=== PATIENT | female | born 1970 | race Caucasian/White ===

== ENCOUNTER 2021-03-03 13:49 | Outpatient (REF) | payer MEDICAID, SELFPAY ==
--- NOTE | ~2021-03-03 | XR_ITS ---
EXAMINATION: XR CHEST CLINICAL INFORMATION: Shortness of breath COMPARISON: None TECHNIQUE: 2 views of the chest were obtained. FINDINGS: No significant abnormality is noted involving the heart, lungs, mediastinum, bony thorax or soft tissues. XR/XR chest 2V IMPRESSION: Unremarkable chest exam.
== END 2021-03-03 13:50 | disposition home or self-care (01) ==
LOC: HO.HMGCX 13:49
PROVIDERS: PCP Internal Medicine; Visit Provider Internal Medicine
DX: R06.02 Shortness of breath (principal)
CPT/HCPCS: 71046

== ENCOUNTER 2021-03-04 13:36 | Outpatient (REF) | payer MEDICAID, SELFPAY ==
[2021-03-04 16:28] LABS: Hematocrit 38.6 % (37-47); Hemoglobin 13.2 g/dl (12.0-16.0); Mean Corpuscular HGB Conc 34.2 g/dl (31.0-35.0); Mean Corpuscular Hemoglobin 30.6 pg (27.0-33.0); Mean Corpuscular Volume 89.4 fL (80-98); Mean Platelet Volume 10.2 fL (9.4-12.3); Platelet Count 292 X10*3/uL (160-400); Red Blood Count 4.32 X10*6/uL (4.20-5.50); Red Cell Distribution Width 12.8 % (11.0-16.0); White Blood Count 6.8 X10*3/uL (4.8-10.8)
[2021-03-04 16:38] LABS: D Dimer < 200 NG/ML
[2021-03-04 16:40] LABS: Alanine Aminotransferase 43 U/L (0-31); Albumin Level 4.4 g/dL (3.5-5.0); Alkaline Phosphatase 97 U/L (39-117); Anion Gap 16 (12-20); Aspartate Amino Transferase 28 U/L (5-31); Bilirubin Total 0.3 mg/dL (0.0-1.0); Blood Urea Nitrogen 15 mg/dL (9-16); Calcium 9.7 mg/dL (8.4-10.2); Carbon Dioxide 23 mmol/L (22-29); Chloride 105 mmol/L (96-108); Estimated Glomerular Filt Rate > 60; Glucose Fasting 89 mg/dL (60-99); Potassium 4.2 mmol/L (3.3-5.1); Sodium 140 mmol/L (135-145); Total Protein 8.3 g/dL (6.5-8.0)
[2021-03-04 16:58] LABS: B Type Natriuretic Peptide 27 pg/mL (<100)
== END 2021-03-04 13:37 | disposition home or self-care (01) ==
LOC: HO.HMGCLDS 13:36
PROVIDERS: PCP Internal Medicine; Visit Provider Internal Medicine
DX: I26.99 Other pulmonary embolism without acute cor pulmonale (principal); R06.02 Shortness of breath; U07.1 COVID-19
CPT/HCPCS: 36415; 80053; 83880; 85027; 85379

== ENCOUNTER → 2021-03-26 08:32 | Outpatient (REF) | payer MEDICAID, SELFPAY ==
--- NOTE | 2021-03-26 08:35 | CA_ITS ---
Transthoracic Echocardiogram Amended Patient (Last, First, Middle): Bailey Nicholson, Gender: Female Date of : 1970 Age: 51 Procedure Date: 03/26/2021 Procedure Type: Transthoracic Echocardiogram Location: OP Height: 162.56 cm Weight: 107.05 kg BSA: 2.10 m2 Heart Rate: bpm BP: 120 / 60 mmHg Veneer Sample Maker: MAIN/IVON Referring MD: Evelyn Douglas MD Symptoms: R06.02 - Shortness of breath Study Quality: Fair ECG Rhythm: Sinus Conclusions: - The left ventricular systolic function is normal. The calculated ejection fraction is 62% by biplane method. - The basal inferior segment is hypokinetic. - No obvious valvular pathology seen on this study. Findings Left Ventricle Normal left ventricular cavity size. There is normal left ventricular wall thickness. The left ventricular systolic function is normal. The calculated ejection fraction is 62% by biplane method. Diastolic function is normal for age. Wall Motion Rest Echo Findings The basal inferior segment is hypokinetic. Right Ventricle Normal right ventricular cavity size and systolic function. Atria Both atria are normal in size. Aortic Valve There is a normal trileaflet aortic valve. There is no aortic valve stenosis. There is no aortic valve regurgitation. Mitral Valve The mitral valve appears normal. There is no mitral valve regurgitation. There is no mitral valve stenosis. Pulmonic Valve The pulmonic valve was not well visualized. Tricuspid Valve Normal tricuspid valve structure. There is no tricuspid valve regurgitation. The pulmonary artery systolic pressure is normal. Great Vessels The aortic annulus, sinuses of valsalva, and asc aorta are normal in size. Venous The inferior vena cava is mildly dilated and collapses greater than 50% with inspiration. Pericardium/Pleural There is no evidence of pericardial effusion. Prior Study Comparison No prior study available for comparison. Recommendations, Care & Conclusions No obvious valvular pathology seen on this study. Measurements 2D Linear Measurements IVSd: 0.79 0.6-0.9/0.6-1.0 cm LVIDd: 4.37 3.9-5.3/4.2-5.9 cm LVIDd Index: 2.08 2.4-3.2/2.2-3.1 cm/m2 LVIDs: 2.79 2.0-3.6 cm LVPWd: 0.84 0.7-1.1 cm Ao Root: 3.00 2.1-3.5 cm LA Diam: 3.40 2.7-3.8/3.0-4.0 cm LAIDs Index: 1.62 1.5-2.3 cm/m2 LV Mass: 137.40 67-162/88-224 g LV Mass Index: 65.43 43-95/49-115 g/m2 LVOT Diam: 2.10 3.0+(-)1.3 cm 2D Volumes LA Vol: 19.40 2D Systolic Function EF 4C: 62.70 >55% EF 2C: 65.00 >55% EF BiP: 62.00 >55% Mitral Valve MV Pk E: 0.73 MV PK A: 0.81 MV Decel Time: 186.00 E/A: 0.90 E'Lateral: 11.10 E'Medial: 7.83 E/E' Med: 9.30 E/E' Lat: 6.60 PHT: 54.00 MVA PHT: 4.07 Decel Berrien: 3.92 Aortic Valve AoV Pk Francisco: 1.31 AoV Mn Francisco: 0.94 AoV VTI: 0.30 AoV Pk Grad: 7.00 Aov Mn Grad: 4.00 KARLEE Cont.VTI: 2.54 LVOT LVOT Pk Francisco: 1.04 LVOT Mn Francisco: 0.66 LVOT VTI: 0.22 LVOT Pk Grad: 4.00 LVOT Mn Grad: 2.00 LVOT Diam: 2.10 LVOT Area: 3.46 Diastolic Function MV Pk E: 0.73 MV Pk A: 0.81 E/A: 0.90 E'Medial: 7.83 E/E' Med: 9.30 E' Laterial: 11.10 E/E' Lat: 6.60 Right Ventricle TAPSE (mm): 22.60 TVS' Francisco: 10.20 Tricuspid Valve TR Pk Francisco: 2.02 TR Pk Grad: 16.00 RA Press: 8.00 RVSP: 24.00 Great Vessels Aorta Ao Root-2D: 3.00 2.0-3.7 cm Ao Asc: 3.00 2.1-3.4 cm Ao Arch: 2.70 Updated in Other Vendor System with Status of Final J Carlos Cotter MD electronically signed on 03/28/2021 1:25:17 PM with status of Final
== END ==
LOC: HO.CARD 08:32
PROVIDERS: Visit Provider Internal Medicine
DX: R06.02 Shortness of breath (principal); I26.99 Other pulmonary embolism without acute cor pulmonale; U07.1 COVID-19
CPT/HCPCS: 93306

== ENCOUNTER 2022-02-08 15:49 | Outpatient (REF) | payer MEDICAID, SELFPAY ==
--- NOTE | 2022-02-08 17:21 | PFT_ITS ---
FLOWS: FEV1 89% of predicted at 2.52 L. FVC 81% of predicted at 2.88 L. FEV1 to FVC ratio of 0.87. No bronchodilator response. LUNG VOLUMES: Total lung capacity 79% of predicted at 4.03 L. Residual volume 61% of predicted at 1.09 L. Slow vital capacity 90% of predicted at 2.95 L. Expiratory reserve volume 7% of predicted at 0.08 L. Diffusion capacity is mildly decreased, diffusion capacity corrects to normal after adjustment for alveolar ventilation. IMPRESSION: Mild restrictive ventilatory defect with no bronchodilator response. Decreased expiratory reserve volume suggests extrathoracic restriction likely secondary to abdominal obesity. Sotero Ordonez MD AP/MODL / [id number]
== END 2022-02-08 15:50 | disposition home or self-care (01) ==
LOC: HO.RESP 15:49
PROVIDERS: PCP Internal Medicine; Visit Provider Internal Medicine
DX: R06.09 Other forms of dyspnea (principal)
CPT/HCPCS: 94060; 94727; 94729

== ENCOUNTER → 2022-04-30 13:11 | Outpatient (REF) | payer MEDICAID, SELFPAY | LOC: HO.CARD 13:11 | PROVIDERS: PCP Internal Medicine; Visit Provider Internal Medicine | DX: R00.0 Tachycardia, unspecified (principal); R06.09 Other forms of dyspnea | CPT/HCPCS: 93225 ==

== ENCOUNTER 2024-03-26 09:12 | Outpatient (AMB) | payer BC, SELFPAY ==
[2024-03-26 09:20] VITALS: BP 116/70; PULSE 70; O2SAT 98; BMI 41.6
--- NOTE | 2024-03-26 09:20 | MHC.PC.OV ---
Vital Signs 03/26/24 09:20 Height 5 ft 3 in Weight 235 lb BMI 41.6 BP 116/70 Blood Pressure Location Lt radial Position Sitting Pulse 70 Pulse Source Pulse Oximeter Pulse Oximetry (%) 98 Oxygen Delivery Method Room Air Intake Visit Reasons: PE Intake Note: Cindy is here today for PE. Allergies cephalexin Allergy (Unknown, Verified 03/26/24 09:25) Anaphylaxis mild guaifenesin Allergy (Unknown, Verified 03/26/24 09:25) Anaphylaxis mild penicillin G Allergy (Unknown, Verified 03/26/24 09:25) Anaphylaxis mild penicillin V Allergy (Unknown, Verified 03/26/24 09:25) hives Penicillins [PENICILLINS] Allergy (Unknown, Unverified 03/26/24 09:25) CAN'T BREATH Shellfish Allergy (Unknown, Uncoded 03/26/24 09:25) SOB, hives Wasp sting Allergy (Unknown, Uncoded 03/26/24 09:25) swelling Medication List - Last Reconciled 03/26/24 by Evelyn Douglas MD albuterol sulfate 90 mcg/actuation 2 puffs inhalation Q6H PRN ascorbate calcium (vitamin C) 500 mg PO DAILY cholecalciferol (vitamin D3) PO epinephrine (EpiPen 2-Sandeep) 0.3 mg (0.3 mL) IM Q4H PRN zinc acetate PO Tobacco use date assessed: 03/26/24 Dental Screening Dental Screen Date: 03/26/24 Did you have a dental visit in the last 12 months?: Yes Did you have a dental problem in the last 6 months where you did not have access to dental care?: No Was dental information given to patient?: Patient has dentist HPI PE HPI Details Pt presents for PE. Pt c/o [facility] for a few years, patient has not been physically active. She denies PND orthopnea cough pleurisy. She complains of chronic bilateral heel pain worse at the end of day, after being on her feet all day for months. 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 She has been trying to lose weight decreasing caloric intake increasing physical activity for over 6 months unsuccessfully. She is interested in trying GLP 1 receptor agonist. [facility] Medical History (Updated 03/26/24 @ 11:07 by Evelyn Douglas MD) Pulmonary embolism COVID-19 SOB (shortness of breath) Surgical History (Updated 03/26/24 @ 09:31 by AURELIA Nunn) History of loop electrical excision procedure (LEEP) [place] teeth extracted Hx of cholecystectomy Family History (Updated 03/26/24 @ 09:32 by AURELIA Nunn) Father Hypertension Mother Hypertension Stroke Social History Housing: House Patient Tobacco Use Status: Never used Tobacco e-Cigarette/Vaping Use: Never Used Current occupational status: unemployed Cognitive needs: No Hearing needs: No Vision needs: Yes Questionnaire PHQ-9 Over the last 2 weeks, how often have you been bothered by any of the following problems? 1. Little interest or pleasure in doing things: several days 2. Feeling down, depressed, or hopeless: several days 3. Trouble falling or staying asleep, or sleeping too much: not at all 4. Feeling tired or having little energy: nearly every day 5. Poor appetite or overeating: not at all 6. Feeling bad about yourself - or that you are a failure or have let yourself or your family down: not at all 7. Trouble concentrating on things, such as reading the newspaper or watching television: not at all 8. Moving or speaking so slowly that other people could have noticed. Or the opposite - being so fidgety or restless that you have been moving around a lot more than usual: not at all 9. Thoughts that you would be better off or of hurting yourself in some way: not at all Total score: 5 Depression Screening Interpretation: Negative Depression Screening Done: Yes 00856 - PHQ-9 Billing: Yes Source: Developed by Drs. Joo Trevino, Debby Persaud, Hugo Maier and colleagues, with an educational marissa from [employer]. Thrive Questionnaire Date Thrive assessed: 03/26/24 I am a: Patient What is your living situation today?: I have a steady place to live Within the past 12 months, did the food you bought not last and you didn't have the money to get more?: Never true Within the past 12 months, did you worry whether your food would run out before you got money to buy more?: Never true Do you have trouble paying for medicines?: No Do you have trouble getting transportation to medical appointments?: No Do you have trouble paying your heating and electricity bill?: No Do you have trouble taking care of your child, family member or friend?: No Do you have trouble with day-to-day activities such as bathing, preparing meals, shopping, managing finances, etc.?: No Are you currently unemployed and looking for a job?: No Are you interested in more education?: Yes Please select the resources that you would like help with: None Currently or been in a relationship where the following occur: No concerns reported THRIVE Score: 0 AUDIT C Alcohol Use Questionnaire (AUDIT-C) 1. How often do you have a drink containing alcohol?: Monthly or less 2. How many drinks containing alcohol do you have on a typical day when you are drinking?: 1 or 2 3. How often do you have six or more drinks on one occasion?: Never Total Score: 1 ALVARO-7 AMB Questionnaire ALVARO-7 Date ALVARO - 7 assessed: 03/26/24 Feeling nervous, anxious, or on edge: 1 = Several days Not being able to stop or control worryin = Not at all Worrying too much about different things: 1 = Several days Trouble relaxin = More than half the days Being so restless that it is hard to sit still: 0 = Not at all Becoming easily annoyed or irritable: 1 = Several days Feeling afraid as if something awful might happen: 0 = Not at all Total ALVARO-7 score (0-4 normal; 5-9 mild; 10-14 moderate; 15-21 severe): 5 Source: Developed by Drs. Joo Trevino, Debby Persaud, Hugo Maier and colleagues, with an educational marissa from [employer]. ALVARO-7 Assessment Billing ALVARO-7 Assessment Tool: ALVARO-7 Assessment 64637 Review of Systems Const All systems reviewed & are unremarkable except as noted in HPI and below Eyes Reports no additional complaints ENT Reports no additional complaints Card Reports no additional complaints Resp Reports no additional complaints GI Reports no additional complaints Reports no additional complaints Physical exam (Primary Care) Vital Signs: Last Vital Signs Pulse 70 03/26/24 09:20 BP 116/70 03/26/24 09:20 Pulse Ox 98 03/26/24 09:20 Oxygen Delivery Method Room Air 03/26/24 09:20 BMI result Body Mass Index 41.6 Tobacco/Smoking Status: Tobacco use Status Tobacco use date assessed 03/26/24 03/26/24 09:34 Patient Tobacco Use Status Never used Tobacco 03/26/24 09:22 e-Cigarette/Vaping Use Never Used 03/26/24 09:22 PHQ-9: PHQ-9 Score PHQ-9: Total score 5 03/26/24 09:46 Depression Screening Interpretation: Negative Thrive Assessment: Date of Thrive Assessment Date Thrive assessed 03/26/24 03/26/24 09:22 Currently or been in a relationship where the following occur: No concerns reported Const General: no acute distress HENMT Head: Yes normal to inspection Ears: hearing grossly normal bilaterally General nose exam: Normal external nose present Face and sinus: Yes normal facial exam Throat: Yes posterior oropharynx normal Eyes General: appearance normal, both eyes and all related structures Neck Neck: Yes no lymphadenopathy and Yes supple Resp Effort & Inspection: normal respiratory effort Auscultation: clear to auscultation bilaterally Cardio Rhythm: regular rhythm Heart sounds: S1 normal heart sound present and S2 normal heart sound present GI Inspection: Yes normal to inspection Palpation (GI): Soft to palpation Percussion: Yes normal to percussion Auscultation: normal bowel sounds External Female Exam: normal external appearance Speculum Exam - Vagina: normal appearance of the vagina Speculum Exam - Cervix: normal appearance of the cervix Bimanual exam- vagina & uterus: normal bimanual exam Extrem General: Yes no clubbing, cyanosis or edema Coding Level of Care Code Est Pt Prev Care 40-64y(56875) Diagnoses Annual physical exam Z00.00 Overweight E66.3 Sleep apnea G47.30 Additional Codes ALVARO-7 Assessment Billing - ALVARO-7 Assessment Tool: ALVARO-7 Assessment 68842 ([id number]) PHQ-9 - 01122 - PHQ-9 Billing: Yes ([id number]) Assessment & Plan Assessment & Plan (1) Annual physical exam: Code(s): Z00.00 - Encounter for general adult medical examination without abnormal findings Category: Medical Plan: well balanced diet, regular exercise, schedule mammogram and colonoscopy, pap done today. (2) Overweight: Comment: BMI 41,6 Code(s): E66.3 - Overweight Category: Medical Plan: DECREASING CALORIC INTAKE INCREASING PHYSICAL ACTIVITY WEIGHT LOSS DISCUSSED WITH THE PATIENT. ZEPBOUND iS PRESCRIBED TO FACILITATE WEIGHT LOSS AND LOWER THE RISK FOR CORONARY ARTERY DISEASE, [place], CVA (3) Sleep apnea: Code(s): G47.30 - Sleep apnea, unspecified Category: Medical Plan: Obtain home sleep study to evaluate for sleep apnea Orders: Orders MM screening mammo BI Today R73.9 - Hyperglycemia, unspecified, Z12.31 - Encounter for screening mammogram for malignant neoplasm of breast Pap Smear Today Z00.00 - Encounter for general adult medical examination without abnormal findings Comprehensive [place]. Panel Fast Today Z00.00 - Encounter for general adult medical examination without abnormal findings Complete Blood Count Auto Diff Today Z00.00 - Encounter for general adult medical examination without abnormal findings Lipid Panel Today Z00.00 - Encounter for general adult medical examination without abnormal findings TSH reflex Free T4 Today Z00.00 - Encounter for general adult medical examination without abnormal findings UA w Microscopic Today Z00.00 - Encounter for general adult medical examination without abnormal findings RT home sleep study Today G47.30 - Sleep apnea, unspecified Hemoglobin A1c Today R73.9 - Hyperglycemia, unspecified Referrals Gastroenterology Referral Z00.00 - Encounter for general adult medical examination without abnormal findings Medications: New tirzepatide (weight loss) (Zepbound) for 4 weeks 2.5 mg (0.5 mL) subcut QWEEK 2 mL 0RF
== END 2024-03-26 11:09 | disposition home or self-care (01) ==
PROVIDERS: PCP Internal Medicine; Visit Provider Internal Medicine
DX: Z00.00 Encounter for general adult medical examination without abnormal findings (principal); E66.3 Overweight; G47.30 Sleep apnea, unspecified

== ENCOUNTER 2024-03-26 09:12 | Outpatient (REF) | payer BC, SELFPAY ==
[2024-03-26 13:05] LABS: Appearance Urine Turbid; Color Urine Yellow; Glucose Urine UA Negative (Negative); Leukocyte Esterase Urine Trace (Negative); Nitrite Urine Negative (Negative); Specific Gravity - Urine 1.025 (1.005-1.025); UMIC TRIGGER UA YES; Urine Blood Negative (Negative); Urine Ketones Negative (Negative); Urine Protein 30 (1+) mg/dL (Neg-Trace)
[2024-03-26 13:13] LABS: Bacteria Urine None Seen (None Seen); RBC Urine 0-2 /HPF (0-2); WBC Urine 0-5 /HPF (0-5)
[2024-03-26 13:14] LABS: MANUAL DIFF FLAG NO
[2024-03-26 13:25] LABS: Basophils Percent Auto 0.3 % (0-2); Eosinophils Absolute Auto 0.1 X10*3/uL (0.0-0.4); Eosinophils Percent Auto 1.1 % (0-4); Hematocrit 42.2 % (37.0-47.0); Hemoglobin 14.5 g/dl (12.0-16.0); Imm Gran Abs Auto 0.02 X10*3/uL (0.00-0.03); Imm Gran Pct Auto 0.3 % (0.0-0.4); Lymphocytes Absolute Auto 1.3 X10*3/uL (1.2-4.9); Lymphocytes Percent Auto 19.9 % (20-40); Mean Corpuscular HGB Conc 34.4 g/dl (31.0-35.0); Mean Corpuscular Hemoglobin 30.5 pg (27.0-33.0); Mean Corpuscular Volume 88.7 fL (80.0-98.0); Mean Platelet Volume 10.1 fL (9.4-12.3); Monocytes Absolute Auto 0.5 X10*3/uL (0.1-1.2); Monocytes Percent Auto 7.2 % (2-11); Neutrophils Absolute Auto 4.6 x10*3/uL (2.0-8.3); Neutrophils Percent Auto 71.2 % (45-73); Platelet Count 346 X10*3/uL (160-400); Red Blood Count 4.76 X10*6/uL (4.20-5.50); Red Cell Distribution Width 12.4 % (11.0-16.0); White Blood Count 6.4 X10*3/uL (4.8-10.8)
[2024-03-26 13:34] LABS: Estimated Average Glucose 97 mg/dL; Hemoglobin A1C 122.0468 umol/L; Total Hemoglobin (HGBA1C) 3859.0784 umol/L
[2024-03-26 13:51] LABS: Alanine Aminotransferase 37 U/L (0-31); Albumin Level 4.4 g/dL (3.5-5.0); Alkaline Phosphatase 73 U/L (39-117); Anion Gap 11 (12-20); Aspartate Amino Transferase 30 U/L (5-31); Bilirubin Total 0.5 mg/dL (0.0-1.0); Blood Urea Nitrogen 23 mg/dL (9-16); Calcium 9.5 mg/dL (8.4-10.2); Carbon Dioxide 23 mmol/L (22-29); Chloride 109 mmol/L (96-108); Cholesterol 168 mg/dL (<200); Estimated Glomerular Filt Rate > 60; Glucose Fasting 94 mg/dL (60-99); HDL Cholesterol 50 mg/dL (>40); LDL Cholesterol Calculated 102 mg/dL (<100); Sodium 139 mmol/L (135-145); Total Protein 8.7 g/dL (6.5-8.0); Triglycerides 84 mg/dL (<150)
[2024-03-26 14:08] LABS: TSH reflex Free T4 1.57 uIU/mL (0.32-4.0)
== END 2024-03-26 09:13 | disposition home or self-care (01) ==
LOC: HO.HMGCLDS 09:12
PROVIDERS: PCP Internal Medicine; Visit Provider Internal Medicine
DX: Z00.00 Encounter for general adult medical examination without abnormal findings (principal); R73.9 Hyperglycemia, unspecified; E66.3 Overweight; G47.30 Sleep apnea, unspecified
CPT/HCPCS: 36415; 80053; 80061; 81001; 83036; 84443; 85025; 96127

== ENCOUNTER 2024-03-26 11:02 | Outpatient (REF) | payer BC, SELFPAY ==
[2024-03-26 14:06] LABS: HPV 16,18/45 See PAP report
== END 2024-03-26 11:03 | disposition home or self-care (01) ==
LOC: HO.LNP 11:02
PROVIDERS: Visit Provider Internal Medicine
DX: Z00.00 Encounter for general adult medical examination without abnormal findings (principal)
CPT/HCPCS: 87624; 88175

== ENCOUNTER 2024-04-14 13:59 | Outpatient (REF) | payer BC, SELFPAY ==
[2024-04-14 15:41] LABS: B Type Natriuretic Peptide 15 pg/mL (<100)
[2024-04-14 16:24] LABS: Erythrocyte Sedimentation Rate 19 MM/HR (0-20)
[2024-04-17 08:47] LABS: PES - Abn Protein Band 1 1.3 g/dL (NONE DETECTED); Prot Elec - Albumin 4.7 g/dL (3.8-4.8); Prot Elec - Alpha1 0.3 g/dL (0.2-0.3); Prot Elec - Alpha2 0.8 g/dL (0.5-0.9); Prot Elec - Beta 1 0.4 g/dL (0.4-0.6); Prot Elec - Beta 2 0.4 g/dL (0.2-0.5); Prot Elec - Total Protein 8.7 g/dL (6.1-8.1)
== END 2024-04-14 14:00 | disposition home or self-care (01) ==
LOC: HO.HMGCLDS 13:59
PROVIDERS: PCP Internal Medicine; Visit Provider Internal Medicine
DX: R80.9 Proteinuria, unspecified (principal); R06.09 Other forms of dyspnea
CPT/HCPCS: 36415; 83880; 84165; 85652

== ENCOUNTER 2024-05-07 11:57 | Outpatient (REF) | payer BC, SELFPAY ==
[2024-05-07 14:04] LABS: Total Volume 24 Hour Urine 1400 mL
[2024-05-07 14:29] LABS: Creatinine, 24Hr Urine 1.1 G/Day (1.0-2.0); Creatinine, mg/dL 77.12; Protein 24 Hr Urine < 98 mg/Day (<150); Protein mg/dL < 7 mg/dL
[2024-05-10 14:28] LABS: IgA 136 mg/dL (47-310); IgG 2245 mg/dL (600-1640); IgM 56 mg/dL (50-300)
[2024-05-11 06:48] LABS: PEU-Protein Creat Ratio Rand 0.071 (0.024-0.184); PEU-Rand. Prot/Creat Ratio 71 mg/g creat (24-184); PEU-Random Ur. Gamma Globulin 0 %; PEU-Random Urine A1 Globulin 0 %; PEU-Random Urine A2 Globulin 0 %; PEU-Random Urine Albumin 100 %; PEU-Random Urine Beta Globulin 0 %; PEU-Random Urine Creatinine 113 mg/dL (20-275); PEU-Random Urine Protein 8 mg/dL (5-24)
== END 2024-05-07 11:58 | disposition home or self-care (01) ==
LOC: HO.HMGCLDS 11:57
PROVIDERS: PCP Internal Medicine; Visit Provider Internal Medicine
DX: R80.9 Proteinuria, unspecified (principal)
CPT/HCPCS: 82570; 82784; 84156; 84166; 86334

== ENCOUNTER → 2024-06-06 13:12 | Outpatient (BNV) | payer BC, SELFPAY | PROVIDERS: PCP Internal Medicine; Visit Provider Internal Medicine Medical Oncology | DX: D47.2 Monoclonal gammopathy (principal) | CPT/HCPCS: 99204 ==

== ENCOUNTER 2024-06-14 13:28 | Outpatient (AMB) | payer BC, SELFPAY ==
[2024-06-14 13:40] VITALS: BP 118/76; PULSE 73; RESP 18; TEMP 37.1; O2SAT 98; BMI 40.0
--- NOTE | 2024-06-14 13:40 | MHC.PC.OV ---
Vital Signs 06/14/24 13:40 Height 5 ft 3 in Weight 226 lb BMI 40.0 BP 118/76 Blood Pressure Location Lt brachial Position Sitting Respiration 18 Pulse 73 Pulse Source Pulse Oximeter Temp 98.8 F Temp Source Oral Pulse Oximetry (%) 98 Oxygen Delivery Method Room Air Intake Visit Reasons: Follow up on weight med Intake Note: Pt is here today for a follow up visit on weight. Allergies cephalexin Allergy (Unknown, Verified 06/14/24 13:44) Anaphylaxis mild guaifenesin Allergy (Unknown, Verified 06/14/24 13:44) Anaphylaxis mild penicillin G Allergy (Unknown, Verified 06/14/24 13:44) Anaphylaxis mild penicillin V Allergy (Unknown, Verified 06/14/24 13:44) hives Penicillins [PENICILLINS] Allergy (Unknown, Unverified 06/14/24 13:44) CAN'T BREATH Shellfish Allergy (Unknown, Uncoded 06/14/24 13:44) SOB, hives Wasp sting Allergy (Unknown, Uncoded 06/14/24 13:44) swelling Medication List - Last Reconciled 06/14/24 by Evelyn Douglas MD albuterol sulfate 90 mcg/actuation 2 puffs inhalation Q6H PRN ascorbate calcium (vitamin C) 500 mg PO DAILY cholecalciferol (vitamin D3) 500 mg PO DAILY epinephrine (EpiPen 2-Sandeep) 0.3 mg (0.3 mL) IM Q4H PRN Zepbound (tirzepatide (weight loss)) 2.5 mg (0.5 mL) subcut QWEEK NS zinc acetate 13 mg PO DAILY Tobacco use date assessed: 06/14/24 Dental Screening Dental Screen Date: 06/14/24 Did you have a dental visit in the last 12 months?: No Did you have a dental problem in the last 6 months where you did not have access to dental care?: Yes Was dental information given to patient?: Yes HPI Follow up on weight med HPI Details Patient presents for the follow-up. She has been taking Zepbound for 3 months lost 10 lb. She has been tolerating medication well, decreasing caloric intake and increasing physical activity. PFSH Medical History (Updated 06/14/24 @ 15:17 by Evelyn Douglas MD) COVID-19 SOB (shortness of breath) Surgical History (Updated 06/06/24 @ 17:45 by Miguel Swanson MD) History of loop electrical excision procedure (LEEP) [place] teeth extracted Hx of cholecystectomy Family History Father Hypertension Mother Hypertension Stroke Maternal Aunt Cancer Paternal Uncle Bone cancer Social History Household Members: Significant Other and Children Housing: House Patient Tobacco Use Status: Never used Tobacco e-Cigarette/Vaping Use: Never Used service: No Current occupational status: employed and unemployed Gender identity: Female Cognitive needs: No Hearing needs: No Vision needs: Yes Questionnaire PHQ-9 Over the last 2 weeks, how often have you been bothered by any of the following problems? 1. Little interest or pleasure in doing things: not at all 2. Feeling down, depressed, or hopeless: not at all 3. Trouble falling or staying asleep, or sleeping too much: several days 4. Feeling tired or having little energy: more than half the days 5. Poor appetite or overeating: not at all 6. Feeling bad about yourself - or that you are a failure or have let yourself or your family down: not at all 7. Trouble concentrating on things, such as reading the newspaper or watching television: not at all 8. Moving or speaking so slowly that other people could have noticed. Or the opposite - being so fidgety or restless that you have been moving around a lot more than usual: not at all 9. Thoughts that you would be better off or of hurting yourself in some way: not at all Total score: 3 Depression Screening Interpretation: Negative Depression Screening Done: Yes 94070 - PHQ-9 Billing: Yes Source: Developed by Drs. Joo Trevino, Debby Persaud, Hugo Maier and colleagues, with an educational marissa from [employer]. Thrive Questionnaire Date Thrive assessed: 06/14/24 I am a: Patient What is your living situation today?: I have a steady place to live Within the past 12 months, did the food you bought not last and you didn't have the money to get more?: Never true Within the past 12 months, did you worry whether your food would run out before you got money to buy more?: Never true Do you have trouble paying for medicines?: No Do you have trouble getting transportation to medical appointments?: No Do you have trouble paying your heating and electricity bill?: No Do you have trouble taking care of your child, family member or friend?: No Do you have trouble with day-to-day activities such as bathing, preparing meals, shopping, managing finances, etc.?: No Are you currently unemployed and looking for a job?: No Are you interested in more education?: No Please select the resources that you would like help with: None Currently or been in a relationship where the following occur: No concerns reported THRIVE Score: 0 AUDIT C Alcohol Use Questionnaire (AUDIT-C) 1. How often do you have a drink containing alcohol?: Monthly or less 2. How many drinks containing alcohol do you have on a typical day when you are drinking?: 1 or 2 3. How often do you have six or more drinks on one occasion?: Never Total Score: 1 ALVARO-7 AMB Questionnaire ALVARO-7 Date ALVARO - 7 assessed: 06/14/24 Feeling nervous, anxious, or on edge: 1 = Several days Not being able to stop or control worryin = Not at all Worrying too much about different things: 3 = Nearly every day Trouble relaxin = More than half the days Being so restless that it is hard to sit still: 0 = Not at all Becoming easily annoyed or irritable: 2 = More than half the days Feeling afraid as if something awful might happen: 0 = Not at all Total ALVARO-7 score (0-4 normal; 5-9 mild; 10-14 moderate; 15-21 severe): 8 Source: Developed by Drs. Joo Trevino, Debby Persaud, Hugo Maier and colleagues, with an educational marissa from [employer]. ALVARO-7 Assessment Billing ALVARO-7 Assessment Tool: ALVARO-7 Assessment 26246 Review of Systems Const All systems reviewed & are unremarkable except as noted in HPI and below ENT Reports no additional complaints Card Reports no additional complaints Resp Reports no additional complaints GI Reports no additional complaints Reports no additional complaints Physical exam (Primary Care) Vital Signs: Last Vital Signs Temp 98.8 F 06/14/24 13:40 Pulse 73 06/14/24 13:40 Resp 18 06/14/24 13:40 BP 118/76 06/14/24 13:40 Pulse Ox 98 06/14/24 13:40 Oxygen Delivery Method Room Air 06/14/24 13:40 BMI result Body Mass Index 40.0 Tobacco/Smoking Status: Tobacco use Status Tobacco use date assessed 06/14/24 06/14/24 13:49 Patient Tobacco Use Status Never used Tobacco 06/14/24 13:49 e-Cigarette/Vaping Use Never Used 06/14/24 13:49 PHQ-9: PHQ-9 Score PHQ-9: Total score 3 06/14/24 13:49 Depression Screening Interpretation: Negative Thrive Assessment: Date of Thrive Assessment Date Thrive assessed 06/14/24 06/14/24 13:49 Currently or been in a relationship where the following occur: No concerns reported Const General: no acute distress Eyes General: appearance normal, both eyes and all related structures Neck Neck: Yes no lymphadenopathy and Yes supple Resp Effort & Inspection: normal respiratory effort Auscultation: clear to auscultation bilaterally Cardio Rhythm: regular rhythm Heart sounds: S1 normal heart sound present and S2 normal heart sound present Coding Level of Care Code Est Pt Level 3 (66317) Diagnoses MGUS (monoclonal gammopathy of unknown significance) D47.2 Overweight E66.3 Additional Codes ALVARO-7 Assessment Billing - ALVARO-7 Assessment Tool: ALVARO-7 Assessment 61677 ([id number]) PHQ-9 - 24014 - PHQ-9 Billing: Yes ([id number]) Assessment & Plan Assessment & Plan (1) MGUS (monoclonal gammopathy of unknown significance): Comment: f/u Dr. Swanson Code(s): D47.2 - Monoclonal gammopathy Category: Medical Plan: Follow-up with Hematology (2) Overweight: Comment: BMI 41,6 Code(s): E66.3 - Overweight Category: Medical Plan: Continue decreasing caloric intake increasing physical activity discussed with the patient. Will increase Zepbound to 5 mg weekly and follow-up in 3 months Medications: New Zepbound (tirzepatide (weight loss)) z 5 mg (0.5 mL) subcut QWEEK 2 mL 2RF NS Discontinued Zepbound (tirzepatide (weight loss)) Discontinued Reason: Doctor's Order 2.5 mg (0.5 mL) subcut QWEEK 2 mL 1RF NS
--- OUTSIDE RECORDS SUMMARY | 2024-06-14 17:21 | XMS_ITS | Clinical Summary ---
Author Organization [facility] ity Address [address] [place] [address] Care Team Providers Care Sheet Rock Layer Name Role Phone Unavailable Primary Care Provider Unavailabl e Social History Tobacco Use Types Packs/Day Years Used Date Smoking Tobacco: Never Assessed Sex and Gender Information Value Date Recorded Sex Assigned at Not on file Gender Identity Not on file Sexual Orientation Not on file Plan of Treatment Health Maintenance Due Date Last Done Comments Breast Cancer Screening 1972 DTaP,Tdap,and Td Vaccines (1 - Tdap) 1991 Hepatitis B Vaccines (1 of 3 - 19+ 3-dose series) 1991 Cervical Cancer Screening: P ap Smear 1993 Zoster Vaccines (1 of 2) 2022 COVID-19 Vaccine (1 - 2023-2 5 season) 2024 Influenza Vaccine (#1) 2024 HIB Vaccines Aged Out No longer eligi ble based on patient's age to complete this topic HPV Vaccines Aged Out No longer eligi ble based on patient's age to complete this topic Hepatitis A Vaccines Aged Out No long er eligible based on patient's age to complete this topic IPV Vaccines Aged Out No longer eligi ble based on patient's age to complete this topic MMR Vaccines Aged Out No longer eligi ble based on patient's age to complete this topic Meningococcal ACWY Vaccine Aged Out N o longer eligible based on patient's age to complete this topic Pneumococcal Vaccine: Pediat rics (0 to 5 Years) and At-Risk Patients (6 to 64 Years) Aged Out No longer eligible b ased on patient's age to complete this topic RSV Immunization Patients Un bob 20 months Aged Out No longer eligible b ased on patient's age to complete this topic Varicella Vaccines Aged Out No longer eligible based on patient's age to complete this topic
--- OUTSIDE RECORDS SUMMARY | 2024-06-14 17:21 | XMS_ITS | Clinical Summary ---
Author Organization [facility] lin Address [address] [place] [address] Care Team Providers Care Comp Field Case Manager Name Role Phone Pcp, No Primary Care Provider [phone] Social History Tobacco Use Types Packs/Day Years Used Date Smoking Tobacco: Never Assessed Comments Unknown Sex and Gender Information Value Date Recorded Sex Assigned at Not on file Legal Sex Female 2:12 PM EDT Gender Identity Not on file Sexual Orientation Not on file Plan of Treatment Health Maintenance Due Date Last Done Comments Colorectal Cancer: COLONOSCO PY Screening every 10 yrs (or Modifier) 1972 Depression: Screening Annual ly using PHQ-2/9 in Adults 18 yrs or above (or HM Modifier)([facility]) 1990 Hepatitis C Virus Infection in Adolescents and Adults: Screening (or Modifier) ([facility]) 1990 [facility] Screening Reminder: Yolanda tsang for all adults ([facility]) 1990 Tobacco Smoking Cessation: i n Adults excluding Women: Behavioral and Pharmacotherapy Interventions ([facility]) 1990 DTaP/Tdap/Td Vaccines ([facility]) (1 - Tdap) 1991 Cervical Cancer Screenin 1-65 yrs of age (or Modifier) 1993 Cervical Cancer Screening: P ap every 3 yrs pts age 21-65 1993 Cervical Cancer: Pap Screeni ng with Modifier timing ([facility]) 1993 Cervical Cancer: hrHPV alone or with cotesting Pap for Pts 30-65yrs screening every 5yrs ([facility]) 1993 Colorectal Cancer Screening 45 -75 Yrs (or HM Modifier) 2017 Colorectal Cancer: FLEXIBLE SIGMOIDOSCOPY Screening every 5 yrs 2017 Colorectal Cancer: Fecal Immunochemical Test (FIT) Annually [facility] 2017 Colorectal Cancer: High-sens itivity gFOBT Screening Annually [facility] 2017 Colorectal Cancer: Stool Col oguard Screening every 3 yrs 2017 Colorectal Cancer:CT Colonog cesar Screening every 5 yrs 2017 Lipid Screening: Every 5 yrs for Women aged 45+ (or HM Modifier) ([facility]) 2018 Breast Cancer: Screening Yolanda ually age 50-74 yrs (or HM Modifier)([facility]) 2022 Zoster/Shingles Vaccine Seri es Screening: Adults aged 18+ yrs (or HM Modifiers)([facility]) (1 of 2) 2022 Flu Vaccination: Yearly for ages 18mos through 64 years (or Modifier)([facility]) 12/15/2023 COVID-19 Vaccine Screening: Initial Series and Booster Status ([facility]) ( - 2023- season) 2024 Pneumococcal Vaccination Scr eening: Pts 0-19 & 19-64 yrs of age ([facility]) Aged Out No longer eligible based on patient's age to complete this topic Medical Devices Not on file Care Teams Comp Field Case Manager Relationship Specialty Start Date End Date Pcp, No PCP - General Family Medicine 01/26/21
== END 2024-06-14 15:18 | disposition home or self-care (01) ==
PROVIDERS: PCP Internal Medicine; Visit Provider Internal Medicine
DX: D47.2 Monoclonal gammopathy (principal); E66.3 Overweight

== ENCOUNTER → 2024-06-14 13:28 | Outpatient (BNVA) | payer BC, SELFPAY | PROVIDERS: PCP Internal Medicine; Visit Provider Internal Medicine | DX: D47.2 Monoclonal gammopathy (principal); E66.3 Overweight; Z68.41 Body mass index [BMI] 40.0-44.9, adult | CPT/HCPCS: 96127 ==

== ENCOUNTER 2024-09-12 14:24 | Outpatient (AMB) | payer BC, SELFPAY ==
--- NOTE | 2024-09-12 14:27 | MHC.PC.OV ---
Vital Signs 09/12/24 14:29 Height 5 ft 3 in Weight 219 lb BMI 38.8 BP 118/76 Blood Pressure Location Lt brachial Position Sitting Respiration 18 Pulse 77 Pulse Source Pulse Oximeter Pulse Oximetry (%) 97 Oxygen Delivery Method Room Air Intake Visit Reasons: 3m follow up Intake Note: Pt is here today for 3 months follow up visit. Allergies cephalexin Allergy (Unknown, Verified 09/12/24 14:31) Anaphylaxis mild guaifenesin Allergy (Unknown, Verified 09/12/24 14:31) Anaphylaxis mild penicillin G Allergy (Unknown, Verified 09/12/24 14:31) Anaphylaxis mild penicillin V Allergy (Unknown, Verified 09/12/24 14:31) hives Penicillins [PENICILLINS] Allergy (Unknown, Unverified 09/12/24 14:31) CAN'T BREATH Shellfish Allergy (Unknown, Uncoded 09/12/24 14:31) SOB, hives Wasp sting Allergy (Unknown, Uncoded 09/12/24 14:31) swelling Medication List - Last Reconciled 09/12/24 by Evelyn Douglas MD albuterol sulfate 90 mcg/actuation 2 puffs inhalation Q6H PRN ascorbate calcium (vitamin C) 500 mg PO DAILY cholecalciferol (vitamin D3) 500 mg PO DAILY epinephrine (EpiPen 2-Sandeep) 0.3 mg (0.3 mL) IM Q4H PRN Zepbound (tirzepatide (weight loss)) 5 mg (0.5 mL) subcut QWEEK NS zinc acetate 13 mg PO DAILY Tobacco use date assessed: 06/14/24 Dental Screening Dental Screen Date: 06/14/24 HPI 3m follow up HPI Details Pt presents for f/u GLP 1 agonist therapy . Pt has been taking Zepbound and tolerating it well. She reports intermittent constipation but has been trying to increase fiber and fluid intake. Patient fell 2 months ago hitting her right shoulder. Patient is feeling better but still has limited range of motion and occasionally pain waking up patient at night. PFSH Medical History (Updated 09/12/24 @ 14:57 by Evelyn Douglas MD) Overweight MGUS (monoclonal gammopathy of unknown significance) Shoulder pain, right COVID-19 SOB (shortness of breath) Surgical History (Updated 06/06/24 @ 17:45 by Miguel Swanson MD) History of loop electrical excision procedure (LEEP) [place] teeth extracted Hx of cholecystectomy Family History Father Hypertension Mother Hypertension Stroke Maternal Aunt Cancer Paternal Uncle Bone cancer Social History Household Members: Significant Other and Children Housing: House Patient Tobacco Use Status: Never used Tobacco e-Cigarette/Vaping Use: Never Used service: No Current occupational status: employed and unemployed Gender identity: Female Cognitive needs: No Hearing needs: No Vision needs: Yes Questionnaire Thrive Questionnaire Date Thrive assessed: 06/07/24 I am a: Patient What is your living situation today?: I have a steady place to live Within the past 12 months, did the food you bought not last and you didn't have the money to get more?: Never true Within the past 12 months, did you worry whether your food would run out before you got money to buy more?: Never true Do you have trouble paying for medicines?: No Do you have trouble getting transportation to medical appointments?: No Do you have trouble paying your heating and electricity bill?: No Do you have trouble taking care of your child, family member or friend?: No Do you have trouble with day-to-day activities such as bathing, preparing meals, shopping, managing finances, etc.?: No Are you currently unemployed and looking for a job?: No Are you interested in more education?: No Please select the resources that you would like help with: None Currently or been in a relationship where the following occur: No concerns reported THRIVE Score: 0 ALVARO-7 AMB Questionnaire ALVARO-7 Date ALVARO - 7 assessed: 06/14/24 Source: Developed by Drs. Joo Trevino, Debby Persaud, Hguo Maier and colleagues, with an educational marissa from [employer]. Review of Systems Const All systems reviewed & are unremarkable except as noted in HPI and below Eyes Reports no additional complaints ENT Reports no additional complaints Card Reports no additional complaints Resp Reports no additional complaints GI Reports no additional complaints Reports no additional complaints Physical exam (Primary Care) Vital Signs: Last Vital Signs Pulse 77 09/12/24 14:29 Resp 18 09/12/24 14:29 BP 118/76 09/12/24 14:29 Pulse Ox 97 09/12/24 14:29 Oxygen Delivery Method Room Air 09/12/24 14:29 BMI result Body Mass Index 38.8 Tobacco/Smoking Status: Tobacco use Status Tobacco use date assessed 06/14/24 09/12/24 14:28 Patient Tobacco Use Status Never used Tobacco 09/12/24 14:28 e-Cigarette/Vaping Use Never Used 09/12/24 14:28 Thrive Assessment: Date of Thrive Assessment Date Thrive assessed 06/07/24 09/12/24 14:28 Currently or been in a relationship where the following occur: No concerns reported Const General: no acute distress HENMT Head: Yes normal to inspection Neck Neck: Yes supple Resp Effort & Inspection: normal respiratory effort Auscultation: clear to auscultation bilaterally Cardio Rhythm: regular rhythm Heart sounds: S1 normal heart sound present and S2 normal heart sound present Extrem Other: This is slightly decreased range of motion of the right shoulder no joint tenderness Coding Level of Care Code Est Pt Level 3 (07615) Diagnoses Shoulder pain, right M25.511 MGUS (monoclonal gammopathy of unknown significance) D47.2 Overweight E66.3 Assessment & Plan Assessment & Plan (1) Shoulder pain, right: Code(s): M25.511 - Pain in right shoulder Category: Medical Plan: Referred to physical therapy (2) MGUS (monoclonal gammopathy of unknown significance): Comment: f/u Dr. Swanson Code(s): D47.2 - Monoclonal gammopathy Category: Medical Plan: Follow-up with Hematology (3) Overweight: Comment: BMI 41,6 Code(s): E66.3 - Overweight Category: Medical Plan: Continue 5 mg of Zepbound, regular physical activity, decreasing caloric intake increasing fiber and fluid intake discussed with the patient. Follow-up in 3 month Orders: Orders PT Evaluation and Treatment Today M25.511 - Pain in right shoulder Medications: Changed From Zepbound (tirzepatide (weight loss)) z 5 mg (0.5 mL) subcut QWEEK 2 mL 2RF NS To Zepbound (tirzepatide (weight loss)) 5 mg (0.5 mL) subcut QWEEK 2 mL 2RF NS
[2024-09-12 14:29] VITALS: BP 118/76; PULSE 77; RESP 18; O2SAT 97; BMI 38.8
--- OUTSIDE RECORDS SUMMARY | 2024-09-12 15:43 | XMS_ITS | Clinical Summary ---
Author Organization [facility] ity Address [address] [place] [address] Care Team Providers Care Forest Products Teacher Name Role Phone Unavailable Primary Care Provider Unavailabl e Social History Tobacco Use Types Packs/Day Years Used Date Smoking Tobacco: Never Assessed Comments Unknown Sex and Gender Information Value Date Recorded Sex Assigned at Not on file Legal Sex Female 5:58 AM EST Gender Identity Not on file Sexual Orientation Not on file Plan of Treatment Health Maintenance Due Date Last Done Comments Breast Cancer Screening 1972 DTaP,Tdap,and Td Vaccines (1 - Tdap) 1991 Hepatitis B Vaccines (1 of 3 - 19+ 3-dose series) 1991 Cervical Cancer Screening: P ap Smear 1993 Pneumococcal Vaccine: 50+ Ye ars (1 of 1 - PCV) 2022 Zoster Vaccines (1 of 2) 2022 COVID-19 Vaccine ( - 2023-2 5 season) 2024 Influenza Vaccine (Season Ended) 2025 HIB Vaccines Aged Out No longer eligi [...] patient's age to complete this topic Meningococcal B Vaccine Aged Out No l onger eligible based on patient's age to complete [...]
--- OUTSIDE RECORDS SUMMARY | 2024-09-12 15:43 | XMS_ITS | Clinical Summary ---
Author Organization [facility] lin Address [address] [facility] [place] [address] Care Team Providers Care Volleyball Referee Name Role Phone Pcp, No Primary Care Provider [phone] Social History Tobacco Use Types Packs/Day Years [...] Adults 18 yrs or above (or HM Modifier)([facility]) 1972 Hepatitis C Virus Infection in Adolescents and Adults: Screening (or Modifier) ([facility]) [address] [facility] Screening Reminder: Yolanda tsang for all adults ([facility]) 1990 Tobacco Smoking Cessation: i n Adults excluding Women: Behavioral and Pharmacotherapy Interventions ([facility]) 1990 DTaP/Tdap/Td Vaccines ([facility]) (1 - Tdap) 1991 Cervical Cancer Screenin 1-65 yrs of age (or Modifier) 1993 Cervical Cancer Screening: P ap every 3 yrs pts age 21-65 1993 Cervical Cancer: Pap Screeni ng with Modifier timing ([facility]) 1993 Cervical Cancer: hrHPV alone or with cotesting Pap for Pts 30-65yrs screening every 5yrs ([facility]) 1993 Colorectal Cancer Screening 45 -75 Yrs (or HM Modifier ) 2017 Colorectal Cancer: FLEXIBLE SIGMOIDOSCOPY Screening every 5 yrs 2017 Colorectal Cancer: Fecal Imm unochemical Test (FIT) Annually [facility] 2017 Colorectal Cancer: High-sens itivity gFOBT Screening Annually [facility] 2017 Colorectal Cancer: Stool Col oguard Screening every 3 yrs 2017 Colorectal Cancer:CT Colonography Screening every 5 yr s 2017 Lipid Screening: Every 5 yrs for Women aged 45+ (or HM Modifier) ([facility]) 2018 Breast Cancer: Screening Yolanda ually age 50-74 yrs (or HM Modifier)([facility]) 2022 Pneumococcal Vaccination Scr eening: Patients 50+ yrs of age ([facility]) (1 of 1 - PCV) 2022 Zoster/Shingles Vaccine Seri es Screening: Adults aged 18+ yrs (or HM Modifiers)([facility]) (1 of 2) 2022 COVID-19 Vaccine Screening: Initial Series and Booster Status ([facility]) ( - season) 2024 Flu Vaccination: Yearly for ages 18mos through 64 years (or Modifier)([facility]) 12/14/2024 Medical Devices Not on file Care Teams Volleyball Referee Relationship Specialty Start Date End Date Pcp, No PCP - General Family Medicine 01/26/21
== END 2024-09-12 15:00 | disposition home or self-care (01) ==
LOC: HO.HMCC 14:25
PROVIDERS: PCP Internal Medicine; Visit Provider Internal Medicine
DX: M25.511 Pain in right shoulder (principal); D47.2 Monoclonal gammopathy; E66.3 Overweight

== ENCOUNTER → 2024-09-12 14:24 | Outpatient (BNVA) | payer BC, SELFPAY | PROVIDERS: PCP Internal Medicine; Visit Provider Internal Medicine ==

== ENCOUNTER 2024-12-14 09:00 | Outpatient (AMB) | payer BC, SELFPAY ==
--- NOTE | 2024-12-14 09:02 | A.OFFPC_ITS ---
Vital Signs 12/14/24 09:03 Height 5 ft 3 in Weight 214 lb BMI 37.9 BP 118/78 Blood Pressure Location Lt brachial Position Sitting Respiration 18 Pulse 79 Pulse Source Pulse Oximeter Temp 98.5 F Temp Source Oral Pulse Oximetry (%) 99 Oxygen Delivery Method Room Air Intake Visit Reasons: 3m follow up Intake Note: Pt is here today for 3 months follow up visit. Allergies cephalexin Allergy (Unknown, Verified 12/14/24 09:07) Anaphylaxis mild guaifenesin Allergy (Unknown, Verified 12/14/24 09:07) Anaphylaxis mild penicillin G Allergy (Unknown, Verified 12/14/24 09:07) Anaphylaxis mild penicillin V Allergy (Unknown, Verified 12/14/24 09:07) hives Penicillins (PENICILLINS) Allergy (Unknown, Verified 12/14/24 09:07) CAN'T BREATH Shellfish Allergy (Unknown, Uncoded 12/14/24 09:07) SOB, hives Wasp sting Allergy (Unknown, Uncoded 12/14/24 09:07) swelling Medication List - Last Reconciled 12/14/24 by Evelyn Douglas MD ascorbate calcium (vitamin C) 500 mg PO DAILY cholecalciferol (vitamin D3) 500 mg PO DAILY epinephrine (EpiPen 2-Sandeep) 0.3 mg (0.3 mL) IM Q4H PRN Zepbound (tirzepatide (weight loss)) 5 mg (0.5 mL) subcut QWEEK NS zinc acetate 13 mg PO DAILY Tobacco use date assessed: 12/14/24 Dental Screening Dental Screen Date: 06/14/24 HPI 3m follow up HPI Details Patient presents for the follow-up of obesity. She has been decreasing caloric intake increasing physical activity and lost 20 lb since March. Patient did not take Zeobound for 1 month because of delay with insurance's preauthorization. She is back on 5 mg and has been told getting medication well. Pt has been under a lot stress because her 4 year house guest/friend had a stroke and patient was made her healthcare proxy. [facility] Medical History (Updated 12/14/24 @ 09:46 by Evelyn Douglas MD) Overweight MGUS (monoclonal gammopathy of unknown significance) Shoulder pain, right COVID-19 SOB (shortness of breath) Surgical History History of loop electrical excision procedure (LEEP) [place] teeth extracted Hx of cholecystectomy Family History Father Hypertension Mother Hypertension Stroke Maternal Aunt Cancer Paternal Uncle Bone cancer Social History Household Members: Significant Other and Children Housing: House Patient Tobacco Use Status: Never used Tobacco e-Cigarette/Vaping Use: Never Used service: No Current occupational status: employed Gender identity: Female Cognitive needs: No Hearing needs: No Vision needs: Yes Questionnaire Thrive Questionnaire Date Thrive assessed: 06/07/24 I am a: Patient What is your living situation today?: I have a steady place to live Within the past 12 months, did the food you bought not last and you didn't have the money to get more?: Never true Within the past 12 months, did you worry whether your food would run out before you got money to buy more?: Never true Do you have trouble paying for medicines?: No Do you have trouble getting transportation to medical appointments?: No Do you have trouble paying your heating and electricity bill?: No Do you have trouble taking care of your child, family member or friend?: No Do you have trouble with day-to-day activities such as bathing, preparing meals, shopping, managing finances, etc.?: No Are you currently unemployed and looking for a job?: No Are you interested in more education?: No Please select the resources that you would like help with: None Currently or been in a relationship where the following occur: No concerns reported THRIVE Score: 0 ALVARO-7 AMB Questionnaire ALVARO-7 Date ALVARO - 7 assessed: 06/14/24 Source: Developed by Drs. Joo Trevino, Debby Persaud, Hugo Maier and colleagues, with an educational marissa from [employer] by [employer]. Review of Systems Const All systems reviewed & are unremarkable except as noted in HPI and below Eyes Reports no additional complaints ENT Reports no additional complaints Card Reports no additional complaints Resp Reports no additional complaints GI Reports no additional complaints Reports no additional complaints Physical exam (Primary Care) Vital Signs: Last Vital Signs Temp 98.5 F 12/14/24 09:03 Pulse 79 12/14/24 09:03 Resp 18 12/14/24 09:03 BP 118/78 12/14/24 09:03 Pulse Ox 99 12/14/24 09:03 Oxygen Delivery Method Room Air 12/14/24 09:03 BMI result Body Mass Index 37.9 Tobacco/Smoking Status: Tobacco use Status Tobacco use date assessed 12/14/24 12/14/24 09:11 Patient Tobacco Use Status Never used Tobacco 12/14/24 09:11 e-Cigarette/Vaping Use Never Used 12/14/24 09:03 Thrive Assessment: Date of Thrive Assessment Date Thrive assessed 06/07/24 12/14/24 09:03 Currently or been in a relationship where the following occur: No concerns reported Const General: no acute distress HENMT Head: Yes normal to inspection Face and sinus: Yes normal facial exam Eyes General: appearance normal, both eyes and all related structures Neck Neck: Yes supple Resp Effort & Inspection: normal respiratory effort Auscultation: clear to auscultation bilaterally Cardio Rhythm: regular rhythm Heart sounds: S1 normal heart sound present and S2 normal heart sound present GI Inspection: Yes normal to inspection Palpation (GI): Soft to palpation Percussion: Yes normal to percussion Auscultation: normal bowel sounds Coding Level of Care Code Est Pt Level 4 (31647) Diagnoses Mitral valve prolapse I34.1 Hyperglycemia R73.9 Overweight E66.3 Assessment & Plan Assessment & Plan (1) Mitral valve prolapse: Code(s): I34.1 - Nonrheumatic mitral (valve) prolapse Category: Medical Plan: Check echo (2) Hyperglycemia: Code(s): R73.9 - Hyperglycemia, unspecified Category: Medical Plan: ADA diet regular exercise weight loss discussed with the patient (3) Overweight: Comment: BMI 41,6, lost 20 lb since March until December on 5 mg of Zepbound Code(s): E66.3 - Overweight Category: Medical Plan: Increase Zepbound to 7.5 mg weekly, continue decreasing caloric intake increasing physical activity. Follow-up in 4 months for physical with a fasting labs before Orders: Orders UA w Microscopic 4 Months R73.9 - Hyperglycemia, unspecified, Z00.00 - Encounter for general adult medical examination without abnormal findings CA echo transthoracic complete Today I34.1 - Nonrheumatic mitral (valve) prolapse Comprehensive [place]. Panel Fast 4 Months R73.9 - Hyperglycemia, unspecified, Z00.00 - Encounter for general adult medical examination without abnormal findings Complete Blood Count Auto Diff 4 Months R73.9 - Hyperglycemia, unspecified, Z00.00 - Encounter for general adult medical examination without abnormal findings Lipid Panel 4 Months R73.9 - Hyperglycemia, unspecified, Z00.00 - Encounter for general adult medical examination without abnormal findings TSH reflex Free T4 4 Months R73.9 - Hyperglycemia, unspecified, Z00.00 - Encounter for general adult medical examination without abnormal findings Vitamin D 25-OH Total 4 Months R73.9 - Hyperglycemia, unspecified, Z00.00 - Encounter for general adult medical examination without abnormal findings MM screening mammo BI Today R73.9 - Hyperglycemia, unspecified, Z00.00 - Encounter for general adult medical examination without abnormal findings, Z12.31 - Encounter for screening mammogram for malignant neoplasm of breast Hemoglobin A1c 4 Months R73.9 - Hyperglycemia, unspecified Medications: New Zepbound (tirzepatide (weight loss)) 7.5 mg (0.5 mL) subcut QWEEK 2 mL 4RF NS
[2024-12-14 09:03] VITALS: BP 118/78; PULSE 79; RESP 18; TEMP 36.9; O2SAT 99; BMI 37.9
--- OUTSIDE RECORDS SUMMARY | 2024-12-14 09:18 | XMS_ITS | Clinical Summary ---
Author Organization [employer] [facility] ity Address [address] [place] [address] Care Team Providers Care Tuber Machine Operator Helper Name Role Phone Unavailable Primary Care Provider [...] Vaccine ( - 2023-2 5 season) 2024 Depression Screening 05/16/2024 Influenza Vaccine (#1) 2025 HIB Vaccines Aged Out No longer [...]
--- OUTSIDE RECORDS SUMMARY | 2024-12-14 09:18 | XMS_ITS | Clinical Summary ---
Author Organization [facility] lin Address [address] [facility] [place] [address] Care Team Providers Care Civil Lawyer Name Role Phone Pcp, No Primary Care Provider [phone] Social History Tobacco Use Types Packs/Day Years [...] Adults 18 yrs or above (or HM Modifier)([facility]) 1990 Hepatitis C Virus Infection in Adolescents and Adults: Screening (or Modifier) ([facility]) 1990 [facility] Screening Reminder: Yolanda tsang for all adults ([facility]) 1990 Tobacco Smoking Cessation: i n Adults excluding Women: Behavioral and Pharmacotherapy Interventions ([facility]) 1990 DTaP/Tdap/Td Vaccines ([facility]) (1 - Tdap) 1991 Cervical Cancer Screenin 1-65 yrs of age (or Modifier) 1993 Cervical Cancer Screening: P ap every 3 yrs pts age 21-65 1993 Cervical Cancer: Pap Screeni ng with Modifier timing ([facility]) 1993 Cervical Cancer: hrHPV alone or with cotesting Pap for Pts 30-65yrs screening every 5yrs ([facility]) 1993 Colorectal Cancer Screening 45 -75 Yrs (or HM Modifier ) 2017 Colorectal Cancer: FLEXIBLE SIGMOIDOSCOPY Screening every 5 yrs 2017 Colorectal Cancer: Fecal Imm unochemical Test (FIT) Annually [facility] 2017 Colorectal Cancer: High-sens itivity gFOBT Screening Annually [facility] 2017 Colorectal Cancer: Stool Col oguard Screening every 3 yrs 2017 Colorectal Cancer:CT Colonography Screening every 5 yr s 2017 Breast Cancer: Screening Yolanda ually age 50-74 yrs (or HM Modifier)([facility]) 2022 Pneumococcal Vaccination Scr eening: Patients 50+ yrs of age ([facility]) (1 of 1 - PCV) 2022 Zoster/Shingles Vaccine Seri es Screening: Adults aged 18+ yrs (or HM Modifiers)([facility]) (1 of 2) 2022 COVID-19 Vaccine Screening: Initial Series and Booster Status ([facility]) ( - 2023- season) 2024 Flu Vaccination: Yearly for ages 18mos through 64 years (or Modifier)([facility]) 12/14/2024 Medical Devices Not on file Care Teams Civil Lawyer Relationship Specialty Start Date End Date Pcp, No PCP - General Family Medicine 01/26/21
== END 2024-12-14 09:49 | disposition home or self-care (01) ==
LOC: HO.HMCC 09:01
PROVIDERS: PCP Internal Medicine; Visit Provider Internal Medicine
DX: I34.1 Nonrheumatic mitral (valve) prolapse (principal); R73.9 Hyperglycemia, unspecified; E66.3 Overweight

== ENCOUNTER 2024-12-25 09:00 | Outpatient (RCR) | payer BC, SELFPAY ==
--- NOTE | 2024-10-18 15:06 | MHC.PT.EP ---
[facility] [place] Office [place] Office [place] Office [address] [phone] F: [phone] F: [phone] F: [phone] F: [phone] Physical Therapy Plan of Care Date of Evaluation: 10/18/24 Date of Surgery: Diagnosis: pain in right shoulder. Assessment: Patient is a 54 year old R handed female who presents with s/s consistent with R shoulder pain. 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 Patient past medical history includes PE and anemia. Current impairments include pain, posture, ROM, strength, activity tolerance and functional mobility. Functional limitations include decreased ability to reach, lift, carry, restrain, and perform overhead activities. Patient is motivated with good rehab potential. Skilled PT will address impairments and functional limitations in order to achieve goals. Frequency and Duration: The patient will be seen 2x/week for 5 weeks Short Term Goals: I with HEP - 2 weeks AROM full and pain free - no painful arc - 3 weeks Impingement cluster (-) - 3 weeks Care Home Goals: min tight b/l pec - 5 weeks b/l ER strength 4+/5 - 5 weeks Pain free with daily activities - 5 weeks SPADI 18/130 or less - 5 weeks Treatment Plan: Modalities to reduce pain, spasms and effusion. Manual therapy to restore motion and function. Therapeutic exercise to improve strength and flexibility. Neuromuscular re-education for posture and balance. Therapeutic activities to return to functional activities of daily living. Electronically signed by: Cristiano Saunders, PT Please sign and return to therapist. Thank you for your referral.
--- NOTE | 2025-03-14 11:58 | MHC.PT.DC ---
[facility] [place] Office [place] Office [place] [facility] [address] [phone] F: [phone] F: [phone] F: [phone] F: [phone] Physical Therapy Discharge Report Diagnosis: pain in right shoulder. Date of Surgery: Date of Evaluation: 10/18/24 Date of Discharge: 01/03/25 Treatments to Date: 8 Cancellations to Date: No Shows to Date: Discharge Status: Improved Function Independent with HEP Discharge Summary: 12/25/24: pt is I with HEP. full AROM, strength improved. min tight b/l pec. SPADI 18/130. appropriate to d/c to HEP At this time. 12/12; Pt pain free. Improved mobility and strength. Pt likes KT. 11/28; Pt c/o L>R with exs performed B. Pt progressing with strength and reduction of pain. 11/22; Pt had to lower wts with exs due to an increase in c/o ache. Pt felt relief after STM and likes KT. 11/15/24: given updated HEP with instructions and bands. good relief from tape. edu on taping at home as well. to progress as tolerated with strength NV. 11/06; Pt christopher all exs. Pt liked KT. Pt has 1 rashad appt. 10/31/24: pt progressing well with skilled PT. no adverse reactions. progressing cuff strength and ROM. 10/25; Pt reported sh felt looser after RX. Pt tender post sh with STM. ROM progressing. NV increase strength as christopher. Patient is a 54 year old R handed female who presents with s/s consistent with R shoulder pain. 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 Patient past medical history includes PE and anemia. Current impairments include pain, posture, ROM, strength, activity tolerance and functional mobility. Functional limitations include decreased ability to reach, lift, carry, restrain, and perform overhead activities. Patient is motivated with good rehab potential. Skilled PT will address impairments and functional limitations in order to achieve goals. Electronically signed by: Cristiano Saunders, PT Please sign and return to therapist. Thank you for your referral.
== END 2025-03-14 11:58 | disposition home or self-care (01) ==
LOC: HO.PTCHIC 09:00
PROVIDERS: PCP Internal Medicine; Visit Provider Internal Medicine
DX: M25.511 Pain in right shoulder (principal)
CPT/HCPCS: 97110; 97140; 97162

== ENCOUNTER 2025-02-08 12:19 | Outpatient (REF) | payer BC, SELFPAY ==
--- NOTE | ~2025-02-08 | XR_ITS ---
EXAMINATION: XR BONE SURVEY, COMPLETE CLINICAL INFORMATION: MGUS Monoclonal Gammopathy of Undetermined Significance COMPARISON: None available. TECHNIQUE: Lateral x-ray head and neck, AP and lateral chest and lumbar spine, AP pelvis, single view bilateral upper and lower extremity FINDINGS: Skull: Unremarkable Cervical spine: There is grade 1 anterolisthesis at C3-4 and C4-5. There is disc space narrowing at C5-6 and C6-7. There is facet sclerosis and joint space narrowing between C3 and C6 CHEST WALL: There are clips are quadrant consistent with prior cholecystectomy. Mild degenerative changes are present thoracic spine. Lumbar: There is mild convex left curvature of the lumbar spine. There is facet sclerosis and osteophytes in the mid to lower thoracic spine. There is disc space narrowing most advanced at L3-4, L4-5, and L5-S1. Minimal SI joint degeneration is noted. There is single clip projecting right of midline at the level of S2. There is sacralization of the right transverse process of L5. Pelvis: Enthesophytes are noted the anterior superior iliac spines. Upper extremity: Unremarkable Lower extremities: There are mild degenerative changes in the knee with minimal joint space narrowing and minute marginal osteophytes. XR/XR bone survey IMPRESSION: No bony destructive or aggressive appearing lesions. Electronically signed by: Reese Meza MD 02/08/2025 01:32 PM EDT
--- OUTSIDE RECORDS SUMMARY | 2025-02-08 14:00 | XMS_ITS | Clinical Summary ---
Author Organization [employer] [facility] ity Address [address] [place] [address] Care Team Providers Care Marine Plumber Name Role Phone Unavailable Primary Care Provider [...] 2022 Zoster Vaccines (1 of 2) 2022 Depression Screening 05/16/2024 COVID-19 Vaccine ( - 2023-2 5 season) 2025 Influenza Vaccine (#1) 2025 HIB Vaccines Aged [...]
--- OUTSIDE RECORDS SUMMARY | 2025-02-08 14:00 | XMS_ITS | Clinical Summary ---
Author Organization [facility] [employer] [facility] lin Address [address] [facility] [place] [address] Care Team Providers Care Blueprint Maker Name Role Phone Pcp, No Primary Care Provider [phone] Social History Tobacco Use Types Packs/Day Years [...] Adults 18 yrs or above (or HM Modifier)([facility]) 1990 Hepatitis C Virus Infection in Adolescents and Adults: Screening (or Modifier) ([facility]) 1990 [facility] Screening Reminder: Yolanda tsang for all adults ([facility]) 1990 Tobacco Smoking Cessation: i n Adults excluding Women: Behavioral and Pharmacotherapy Interventions ([facility]) 1990 DTaP/Tdap/Td Vaccines ([facility]) (1 - Tdap) 1991 Cervical Cancer Screenin 1-65 yrs of age (or Modifier) 1993 Cervical Cancer Screening: P ap every 3 yrs pts age 21-65 1993 Cervical Cancer: Pap Screeni ng with Modifier timing ([facility]) 1993 Cervical Cancer: hrHPV alone or with cotesting Pap for Pts 30-65yrs screening every 5yrs ([facility]) 1993 Colorectal Cancer Screening 45 -75 Yrs (or HM Modifier ) 2017 Colorectal Cancer: FLEXIBLE SIGMOIDOSCOPY Screening every 5 yrs 2017 Colorectal Cancer: Fecal Imm unochemical Test (FIT) Annually [facility] 2017 Colorectal Cancer: High-sens itivity gFOBT Screening Annually [facility] 2017 Colorectal Cancer: Stool Col oguard Screening every 3 yrs 2017 Colorectal Cancer:CT Colonography Screening every 5 yr s 2017 Breast Cancer: Screening Yolanda ually age 50-74 yrs (or HM Modifier)([facility]) 2022 Pneumococcal Vaccination Scr eening: Patients 50+ yrs of age ([facility]) (1 of 1 - PCV) 2022 Zoster/Shingles Vaccine Seri es Screening: Adults aged 18+ yrs (or HM Modifiers)([facility]) (1 of 2) 2022 Flu Vaccination: Yearly for ages 18mos through 64 years (or Modifier)([facility]) 12/14/2024 COVID-19 Vaccine Screening: Initial Series and Booster Status ([facility]) ( - season) 2025 Medical Devices Not on file Care Teams Blueprint Maker Relationship Specialty Start Date End Date Pcp, No PCP - General Family Medicine 01/26/21
== END 2025-02-08 12:20 | disposition home or self-care (01) ==
LOC: HO.XRAY 12:19
PROVIDERS: PCP Internal Medicine; Visit Provider Nurse Practitioner Family
DX: D47.2 Monoclonal gammopathy (principal)
CPT/HCPCS: 77075

== ENCOUNTER → 2025-02-08 12:28 | Outpatient (BNV) | payer BC, SELFPAY | PROVIDERS: PCP Internal Medicine; Visit Provider Radiology Diagnostic Radiology | DX: D47.2 Monoclonal gammopathy (principal) | CPT/HCPCS: 77075 ==

== ENCOUNTER → 2025-03-01 08:17 | Outpatient (REF) | payer BC, SELFPAY ==
--- NOTE | 2025-03-01 08:20 | CA_ITS ---
Transthoracic Echocardiogram Patient (Last, First, Middle): Bailey Nicholson, Gender: F Date of : 1970 Age: 54 Procedure Date: 03/01/2025 Procedure Type: Transthoracic Echocardiogram Location: OP Height: 160.02 cm Weight: 97.07 kg BSA: 1.99 m2 Heart Rate: bpm BP: 124 / 80 mmHg Help Desk Representative: Referring MD: Evelyn Douglas MD Symptoms: I34.1 - Nonrheumatic mitral (valve) prolapse Study Quality: Good ECG Rhythm: Sinus Conclusions: - Normal left ventricular size, thickness, and systolic function. The visually estimated ejection fraction is between 55-60%. - E/E prime ratio is between 8 and 15 consistent with indeterminate filling pressures. - The basal inferior segment is akinetic. - Normal right ventricular cavity size and systolic function. Findings Left Ventricle Normal left ventricular size, thickness, and systolic function. The visually estimated ejection fraction is between 55-60%. There is evidence of regional wall motion abnormalities. Abnormal diastolic function is noted. Spectral Doppler is indicative of an impaired relaxation filling pattern. E/E prime ratio is between 8 and 15 consistent with indeterminate filling pressures. Wall Motion Rest Echo Findings The basal inferior segment is akinetic. Right Ventricle Normal right ventricular cavity size and systolic function. Atria The left atrium is mildly dilated. The right atrium is normal in size. Aortic Valve Normal aortic valve structure and function. There is no aortic valve stenosis. There is no aortic valve regurgitation. Mitral Valve The mitral valve appears normal. There is no mitral valve regurgitation. There is no mitral valve stenosis. Pulmonic Valve The pulmonic valve is normal. There is no pulmonic valve regurgitation. Tricuspid Valve Normal tricuspid valve structure. There is trace tricuspid valve regurgitation. Normal right atrial pressure. There is no evidence of pulmonary hypertension. Great Vessels All visible segments of the aorta are normal in size. The visualized portions of the pulmonary artery and branches are normal. Venous The inferior vena cava is normal in size and collapses greater than 50% with inspiration. Pericardium/Pleural There is no evidence of pericardial effusion. Prior Study Comparison No significant change compared to prior study dated: 03/26/2021. Measurements 2D Linear Measurements IVSd: 0.92 0.6-0.9/0.6-1.0 cm LVIDd: 4.39 3.9-5.3/4.2-5.9 cm LVIDd Index: 2.21 2.4-3.2/2.2-3.1 cm/m2 LVIDs: 2.74 2.0-3.6 cm LVPWd: 0.90 0.7-1.1 cm Ao Root: 2.50 2.1-3.5 cm LA Diam: 4.20 2.7-3.8/3.0-4.0 cm LAIDs Index: 2.11 1.5-2.3 cm/m2 LV Mass: 161.43 67-162/88-224 g LV Mass Index: 81.12 43-95/49-115 g/m2 LVOT Diam: 2.10 3.0+(-)1.3 cm 2D Systolic Function EF 4C: 58.40 >55% EF 2C: 64.80 >55% EF BiP: 62.40 >55% Mitral Valve MV Pk E: 0.68 MV PK A: 0.89 MV Decel Time: 206.00 E/A: 0.80 E'Lateral: 7.62 E'Medial: 5.98 E/E' Med: 11.30 E/E' Lat: 8.90 PHT: 60.00 MVA PHT: 3.67 Decel Dooly: 3.29 Aortic Valve AoV Pk Francisco: 1.45 AoV Mn Francisco: 0.94 AoV VTI: 0.41 AoV Pk Grad: 8.00 Aov Mn Grad: 4.00 KARLEE Cont.VTI: 2.23 LVOT LVOT Pk Francisco: 1.02 LVOT Mn Francisco: 0.64 LVOT VTI: 0.26 LVOT Pk Grad: 4.00 LVOT Mn Grad: 2.00 LVOT Diam: 2.10 LVOT Area: 3.46 Diastolic Function MV Pk E: 0.68 MV Pk A: 0.89 E/A: 0.80 E'Medial: 5.98 E/E' Med: 11.30 E' Laterial: 7.62 E/E' Lat: 8.90 Right Ventricle TAPSE (mm): 23.00 Tricuspid Valve TR Pk Francisco: 2.24 TR Pk Grad: 20.00 RA Press: 3.00 RVSP: 23.00 Great Vessels Aorta Ao Root-2D: 2.50 2.0-3.7 cm Ao Asc: 3.20 2.1-3.4 cm Pulmonary Valve PV Pk Francisco: 0.92 Peak PV Grad: 3.00 Updated in Other Vendor System with Status of Final Alexander Diaz MD electronically signed on 03/03/2025 3:13:00 PM with status of Final
--- OUTSIDE RECORDS SUMMARY | 2025-03-01 08:35 | XMS_ITS | Clinical Summary ---
Author Organization [facility] Address [address] [place] [address] Care Team Providers Care Knock Up Assembler Name Role Phone Unavailable Primary Care Provider [...] 5 season) 2025 Influenza Vaccine (#1) 2025 RSV Immunization Adult Patie nts (1 - 1-dose 75+ series) 2047 HIB Vaccines Aged Out No longer eligi [...]
--- OUTSIDE RECORDS SUMMARY | 2025-03-01 08:35 | XMS_ITS | Clinical Summary ---
Author Organization [facility] [employer] [facility] lin Address [address] [place] [address] Care Team Providers Care Account Executive Agribusiness Name Role Phone Pcp, No Primary Care Provider [phone] Social History Tobacco Use Types Packs/Day Years [...] Adults 18 yrs or above (or HM Modifier)([facility]) 1990 Hepatitis C Virus Infection in Adolescents and Adults: Screening (or Modifier) ([facility]) 1990 [facility] Screening Reminder: Yolanda tsang for all adults ([facility]) 1990 Tobacco Smoking Cessation: i n Adults excluding Women: Behavioral and Pharmacotherapy Interventions ([facility]) 1990 DTaP/Tdap/Td Vaccines ([facility]) (1 - Tdap) 1991 Cervical Cancer Screenin 1-65 yrs of age (or Modifier) 1993 Cervical Cancer Screening: P ap every 3 yrs pts age 21-65 1993 Cervical Cancer: Pap Screeni ng with Modifier timing ([facility]) 1993 Cervical Cancer: hrHPV alone or with cotesting Pap for Pts 30-65yrs screening every 5yrs ([facility]) 1993 Colorectal Cancer Screening 45 -75 Yrs (or HM Modifier ) 2017 Colorectal Cancer: FLEXIBLE SIGMOIDOSCOPY Screening every 5 yrs 2017 Colorectal Cancer: Fecal Imm unochemical Test (FIT) Annually [facility] 2017 Colorectal Cancer: High-sens itivity gFOBT Screening Annually [facility] 2017 Colorectal Cancer: Stool Col oguard Screening every 3 yrs 2017 Colorectal Cancer:CT Colonography Screening every 5 yr s 2017 Breast Cancer: Screening Yolanda ually age 50-74 yrs (or HM Modifier)([facility]) 2022 Pneumococcal Vaccination Scr eening: Patients 50+ yrs of age ([facility]) (1 of 1 - PCV) 2022 Zoster/Shingles Vaccine Seri es Screening: Adults aged 18+ yrs (or HM Modifiers)([facility]) (1 of 2) 2022 Flu Vaccination: Yearly for ages 18mos through 64 years (or Modifier)([facility]) 12/14/2024 COVID-19 Vaccine Screening: Initial Series and Booster Status ([facility]) ( - season) 2025 Medical Devices Not on file Care Teams Account Executive Agribusiness Relationship Specialty Start Date End Date Pcp, No PCP - General Family Medicine 01/26/21
== END ==
LOC: HO.CARD 08:17
PROVIDERS: PCP Internal Medicine; Visit Provider Internal Medicine
DX: I34.1 Nonrheumatic mitral (valve) prolapse (principal)
CPT/HCPCS: 93306

== ENCOUNTER → 2025-03-01 08:20 | Outpatient (BNV) | payer BC, SELFPAY | PROVIDERS: PCP Internal Medicine; Visit Provider Internal Medicine Cardiovascular Disease | DX: I34.1 Nonrheumatic mitral (valve) prolapse (principal) | CPT/HCPCS: 93306 ==

== ENCOUNTER 2025-04-02 11:48 | Outpatient (AMB) | payer BC, SELFPAY ==
[2025-04-02 11:58] VITALS: BP 140/80; PULSE 76; RESP 18; O2SAT 99; BMI 36.8
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
== END 2025-04-02 15:07 | disposition home or self-care (01) ==
LOC: HO.HMCC 11:49
PROVIDERS: PCP Internal Medicine; Visit Provider Internal Medicine
DX: R94.30 Abnormal result of cardiovascular function study, unspecified (principal); E66.3 Overweight; F41.9 Anxiety disorder, unspecified

== ENCOUNTER 2025-04-08 16:22 | Outpatient (REF) | payer BC, SELFPAY ==
--- NOTE | ~2025-04-08 | MM_ITS ---
EXAMINATION: MM SCREENING DIGITAL BREAST TOMOSYNTHESIS, BILATERAL CLINICAL INFORMATION: Screening. Asymptomatic. COMPARISON: Mammography: Comparison is made with available priors TECHNIQUE: Digital breast mammography with tomosynthesis is performed in both the craniocaudal and mediolateral oblique views along with computer-aided detection (CAD). FINDINGS: There are scattered areas of fibroglandular density. There are no significant masses, abnormal calcifications, or other abnormalities. MM/MM tomosynthesis screening BI IMPRESSION: No mammographic evidence of malignancy. ASSESSMENT: BI-RADS Category 1: Negative RECOMMENDATION: Routine annual mammography screening. 1 year F/U This examination should not preclude the clinical evaluation of a suspicious palpable abnormality. This patient's information was entered into a reminder system with a target due date for their next mammogram. Electronically signed by: Jennifer Ryan DO 04/09/2025 03:36 PM JACIEL
--- OUTSIDE RECORDS SUMMARY | 2025-04-08 20:24 | XMS_ITS | Clinical Summary ---
Author Organization [facility] lin Address [address] [place] [address] Care Team Providers Care Laser Printing Operator Name Role Phone Pcp, No Primary Care Provider [phone] Social History Tobacco Use Types Packs/Day Years Used Date Smoking Tobacco: Never Assessed Comments Unknown Sex and Gender Information Value Date Recorded Sex Assigned at Not on file Legal Sex Female 2:12 PM EDT Gender Identity Not on file Sexual Orientation Not on file Plan of Treatment Not on file Medical Devices Not on file Care Teams Laser Printing Operator Relationship Specialty Start Date End Date PcpErin PCP - General Family Medicine 01/26/21
--- OUTSIDE RECORDS SUMMARY | 2025-04-08 20:24 | XMS_ITS | Clinical Summary ---
[facility] Organization [facility] Address [address] [place] [address] Care Team Providers Care Asbestos Shingle Roofer Name Role Phone Unavailable Primary Care Provider [...] Depression Screening 05/16/2024 COVID-19 Vaccine ( - 2024-2 6 season) 2025 Influenza Vaccine (#1) 2025 RSV [...]
== END 2025-04-08 16:23 | disposition home or self-care (01) ==
LOC: HO.MAMMO 16:22
PROVIDERS: PCP Internal Medicine; Visit Provider Internal Medicine
DX: Z00.00 Encounter for general adult medical examination without abnormal findings (principal); Z12.31 Encounter for screening mammogram for malignant neoplasm of breast; R73.9 Hyperglycemia, unspecified
CPT/HCPCS: 77063; 77067

== ENCOUNTER → 2025-04-08 16:30 | Outpatient (BNV) | payer BC, SELFPAY | PROVIDERS: PCP Internal Medicine; Visit Provider Internal Medicine | DX: Z12.31 Encounter for screening mammogram for malignant neoplasm of breast (principal) | CPT/HCPCS: 77063; 77067 ==

== ENCOUNTER → 2025-05-03 10:06 | Outpatient (REF) | payer BC, SELFPAY ==
--- NOTE | ~2025-05-03 | NM_ITS ---
EXERCISE MYOCARDIAL PERFUSION STUDY INDICATION: Abnormal stress test with shortness of breath to evaluate for myocardial ischemia TECHNIQUE: The patient was brought in for an exercise perfusion study on 05/03/2025. Patient performed exercise as per Andrey protocol and was injected 30 mCi of sestamibi once target heart rate was achieved. Images were obtained using the SPECT gamma camera interlaced with the gating device. Images were obtained in supine position. Resting perfusion study was performed on 05/06/2025. Patient was administered 30 mCi of sestamibi intravenously at rest. Images were then obtained in supine position. Images were processed with the software and compared side to side in short axis, horizontal long axis and vertical long axis views. Images obtained without without CT attenuation. Total DLP 102 mGy-cm. FINDINGS: Raw images were reviewed The stress perfusion study showed nonattenuated images show some thinning of the basal and mid anterior wall of the LV myocardium. Remainder of the LV myocardium is normally perfused. Attenuated corrected images show normal uptake of radiotracer in all segments of the LV myocardium. There is suggestion of left ventricular hypertrophy.. The gated study shows normal LV systolic function with calculated LVEF of 67%. LV cavity is normal in size. The gated study shows normal systolic wall thickening and contraction of segments. Resting study shows no change in perfusion pattern compared to stress perfusion study. Gating at rest reveals normal systolic wall motion with ejection fraction at 60%. The findings are consistent with normal myocardial perfusion. NM/NM cardiolite stress test IMPRESSION: 1. Myocardial perfusion imaging study shows normal myocardial perfusion. 2. Gated LVEF is 67%. 3. Transient ischemic dilatation present. EKG revealed negative for ischemia. Electronically signed by: Shaggy Coleman MD 05/06/2025 04:39 PM [facility]
--- NOTE | 2025-05-03 10:09 | CA_ITS ---
Acquisition Time: 2025-05-03 10:36:03 Total Exercise Time: 00:05:10 Test Indications: CP, SOB Medications: SEE H&P Protocol: BYRON Max HR: 153 BPM 91% of Pred: 167 BPM Max BP: 184/80 mmHG Max Work Load: 7.0 METS Exercise stress test with exercise 5 mins 10 secs of Byron Protocol, achieving 91% MPHR, with reports of SOB and lightheadedness, no chets pain, without any arrythmias, with normotensive response to exercise. Without any EKG changes meeting criteria for ischemia. In recovery, dizzines resolved and breathing returned to baseline. Nuclear images pending. Test reviewed with Dr. Diaz. Referred By: Evelyn Douglas Electronically Signed By: Gamaliel Razo
--- OUTSIDE RECORDS SUMMARY | 2025-05-03 11:21 | XMS_ITS | Clinical Summary ---
Author Organization [facility] lin Address [address] [place] [address] Care Team Providers Care It Recruiter Name Role Phone Pcp, No Primary Care Provider [phone] Social History Tobacco Use Types Packs/Day Years Used Date Smoking Tobacco: Never Assessed Comments Unknown Sex and Gender Information Value Date Recorded Sex Assigned at Not on file Legal Sex Female 2:12 PM EDT Gender Identity Not on file Sexual Orientation Not on file Plan of Treatment Not on file Medical Devices Not on file Care Teams It Recruiter Relationship Specialty Start Date End Date PcpErin PCP - General Family Medicine 01/26/21
--- OUTSIDE RECORDS SUMMARY | 2025-05-03 11:21 | XMS_ITS | Clinical Summary ---
Author Organization [facility] ity Address [address] [place] [address] Care Team Providers Care Customs Investigator Name Role Phone Unavailable Primary Care Provider [...]
== END ==
LOC: HO.CARD 10:06
PROVIDERS: PCP Internal Medicine; Visit Provider Internal Medicine
DX: R94.30 Abnormal result of cardiovascular function study, unspecified (principal); R06.09 Other forms of dyspnea
CPT/HCPCS: 78452; 93017; A9500

== ENCOUNTER → 2025-05-03 10:09 | Outpatient (BNV) | payer BC, SELFPAY | PROVIDERS: PCP Internal Medicine | DX: R94.30 Abnormal result of cardiovascular function study, unspecified (principal) | CPT/HCPCS: 78452; 93016; 93018 ==

== ENCOUNTER 2025-05-13 08:54 | Outpatient (REF) | payer BC, SELFPAY ==
[2025-05-13 13:59] LABS: MANUAL DIFF FLAG NO
[2025-05-13 14:04] LABS: Appearance Urine Clear; Glucose Urine UA Negative (Negative); PH 7.0 (5.0-9.0); Specific Gravity - Urine 1.020 (1.005-1.025); UMIC TRIGGER UA YES
[2025-05-13 14:10] LABS: Hematocrit 41.3 % (37.0-47.0); Hemoglobin 13.7 g/dl (12.0-16.0); Imm Gran Abs Auto 0.02 X10*3/uL (0.00-0.03); Imm Gran Pct Auto 0.3 % (0.0-0.4); Lymphocytes Absolute Auto 1.2 X10*3/uL (1.2-4.9); Mean Corpuscular HGB Conc 33.2 g/dl (31.0-35.0); Mean Corpuscular Hemoglobin 30.0 pg (27.0-33.0); Mean Corpuscular Volume 90.4 fL (80.0-98.0); NRBC Abs Auto 0.000 X10*3/uL (0.0-0.012); NRBC Pct Auto 0.0 /100WBC (0.0-0.2); Platelet Count 303 X10*3/uL (160-400); Red Blood Count 4.57 X10*6/uL (4.20-5.50); White Blood Count 5.8 X10*3/uL (4.8-10.8)
[2025-05-13 14:48] LABS: Alanine Aminotransferase 95 U/L (0-31); Albumin Level 4.3 g/dL (3.5-5.0); Alkaline Phosphatase 92 U/L (39-117); Anion Gap 9 (12-20); Aspartate Amino Transferase 60 U/L (5-31); Blood Urea Nitrogen 21 mg/dL (9-16); Calcium 9.4 mg/dL (8.4-10.2); Carbon Dioxide 28 mmol/L (22-29); Chloride 106 mmol/L (96-108); Cholesterol 169 mg/dL (<200); Estimated Glomerular Filt Rate 58; HDL Cholesterol 52 mg/dL (>40); Potassium 4.2 mmol/L (3.3-5.1); Sodium 139 mmol/L (135-145); Total Protein 7.9 g/dL (6.5-8.0); Triglycerides 94 mg/dL (<150)
== END 2025-05-13 08:55 | disposition home or self-care (01) ==
LOC: HO.HMGCLDS 08:54
PROVIDERS: PCP Internal Medicine; Visit Provider Internal Medicine
DX: Z00.00 Encounter for general adult medical examination without abnormal findings (principal); E66.3 Overweight; R73.9 Hyperglycemia, unspecified; D47.2 Monoclonal gammopathy
CPT/HCPCS: 36415; 80053; 80061; 81001; 82306; 83036; 84443; 85025

== ENCOUNTER 2025-05-13 08:54 | Outpatient (AMB) | payer BC, SELFPAY ==
--- OUTSIDE RECORDS SUMMARY | 2025-05-13 09:06 | XMS_ITS | Clinical Summary ---
Author Organization [facility] Address [address] [place] [address] Care Team Providers Care Paint Mixer Machine Name Role Phone Unavailable Primary Care Provider [...]
--- OUTSIDE RECORDS SUMMARY | 2025-05-13 09:06 | XMS_ITS | Clinical Summary ---
Author Organization [facility] [facility] lin Address [address] [place] [address] Care Team Providers Care Grant Manager Name Role Phone Pcp, No Primary Care Provider Social History Tobacco Use Types Packs/Day Years Used Date Smoking Tobacco: Never Assessed Comments Unknown Sex and Gender Information Value Date Recorded Sex Assigned at Not on file Legal Sex Female 2:12 PM EDT Gender Identity Not on file Sexual Orientation Not on file Plan of Treatment Not on file Medical Devices Not on file Care Teams Grant Manager Relationship Specialty Start Date End Date PcpErin PCP - General Family Medicine 01/26/21
--- NOTE | 2025-05-13 09:07 | A.OFFPC_ITS ---
Vital Signs 05/13/25 09:08 Height 5 ft 3 in Weight 214 lb BMI 37.9 BP 130/78 Blood Pressure Location Lt brachial Position Sitting Respiration 17 Pulse 75 Pulse Source Pulse Oximeter Temp 98.4 F Temp Source Oral Pulse Oximetry (%) 98 Oxygen Delivery Method Room Air Intake Visit Reasons: PE - see comments Intake Note: Pt is here today for PE. Allergies cephalexin Allergy (Unknown, Verified 05/13/25 09:11) Anaphylaxis mild guaifenesin Allergy (Unknown, Verified 05/13/25 09:11) Anaphylaxis mild penicillin G Allergy (Unknown, Verified 05/13/25 09:11) Anaphylaxis mild penicillin V Allergy (Unknown, Verified 05/13/25 09:11) hives Penicillins (PENICILLINS) Allergy (Unknown, Verified 05/13/25 09:11) CAN'T BREATH Shellfish Allergy (Unknown, Uncoded 05/13/25 09:11) SOB, hives Wasp sting Allergy (Unknown, Uncoded 05/13/25 09:11) swelling Medication List - Last Reconciled 05/13/25 by Evelyn Douglas MD ascorbate calcium (vitamin C) 500 mg PO DAILY cholecalciferol (vitamin D3) 500 mg PO DAILY epinephrine (EpiPen 2-Sandeep) 0.3 mg (0.3 mL) IM Q4H PRN Zepbound (tirzepatide (weight loss)) 7.5 mg (0.5 mL) subcut QWEEK NS zinc acetate 13 mg PO DAILY Tobacco use date assessed: 05/13/25 Dental Screening Dental Screen Date: 06/14/24 HPI PE - see comments HPI Details Pt presents for PE. Pt had negative nuclear stress for abnormal echocardiogram consistent with inferior wall akinesis. Anxiety improved since patient has not been working for 1 month. 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 Overweight MGUS (monoclonal gammopathy of unknown significance) Shoulder pain, right COVID-19 SOB (shortness of breath) Surgical History History of loop electrical excision procedure (LEEP) [place] teeth extracted Hx of cholecystectomy Family History Father Hypertension Mother Hypertension Stroke Maternal Aunt Cancer Paternal Uncle Bone cancer Social History Household Members: Significant Other and Children Housing: House Patient Tobacco Use Status: Never used Tobacco e-Cigarette/Vaping Use: Never Used service: No Current occupational status: employed Gender identity: Female Cognitive needs: No Hearing needs: No Vision needs: Yes Questionnaire Thrive Questionnaire Date Thrive assessed: 06/07/24 I am a: Patient What is your living situation today?: I have a steady place to live Within the past 12 months, did the food you bought not last and you didn't have the money to get more?: Never true Within the past 12 months, did you worry whether your food would run out before you got money to buy more?: Never true Do you have trouble paying for medicines?: No Do you have trouble getting transportation to medical appointments?: No Do you have trouble paying your heating and electricity bill?: No Do you have trouble taking care of your child, family member or friend?: No Do you have trouble with day-to-day activities such as bathing, preparing meals, shopping, managing finances, etc.?: No Are you currently unemployed and looking for a job?: No Are you interested in more education?: No Currently or been in a relationship where the following occur: No concerns reported THRIVE Score: 0 ALVARO-7 AMB Questionnaire ALVARO-7 Date ALVARO - 7 assessed: 04/02/25 Source: Developed by Drs. Joo Trevino, Debby Persaud, Hugo Maier and colleagues, with an educational marissa from [employer]. Review of Systems Const All systems reviewed & are unremarkable except as noted in HPI and below Eyes Reports no additional complaints ENT Reports no additional complaints Card Reports no additional complaints Resp Reports no additional complaints GI Reports no additional complaints Reports no additional complaints Physical exam (Primary Care) Vital Signs: Last Vital Signs Temp 98.4 F 05/13/25 09:08 Pulse 75 05/13/25 09:08 Resp 17 05/13/25 09:08 BP 130/78 05/13/25 09:08 Pulse Ox 98 05/13/25 09:08 Oxygen Delivery Method Room Air 05/13/25 09:08 BMI result Body Mass Index 37.9 Tobacco/Smoking Status: Tobacco use Status Tobacco use date assessed 05/13/25 05/13/25 09:15 Patient Tobacco Use Status Never used Tobacco 05/13/25 09:15 e-Cigarette/Vaping Use Never Used 05/13/25 09:15 Thrive Assessment: Date of Thrive Assessment Date Thrive assessed 06/07/24 05/13/25 09:15 Currently or been in a relationship where the following occur: No concerns reported Const General: no acute distress HENMT Head: Yes normal to inspection Ears: TM's normal bilaterally Face and sinus: Yes normal facial exam Eyes General: appearance normal, both eyes and all related structures Neck Neck: Yes no lymphadenopathy and Yes supple Resp Effort & Inspection: normal respiratory effort Auscultation: clear to auscultation bilaterally Cardio Rhythm: regular rhythm Heart sounds: S1 normal heart sound present and S2 normal heart sound present GI Inspection: Yes normal to inspection Palpation (GI): Soft to palpation Percussion: Yes normal to percussion Auscultation: normal bowel sounds Coding Level of Care Code Est Pt Prev Care 40-64y(21491) Diagnoses Annual physical exam Z00.00 Overweight E66.3 Hypertension I10 MGUS (monoclonal gammopathy of unknown significance) D47.2 Assessment & Plan Assessment & Plan (1) Annual physical exam: Code(s): Z00.00 - Encounter for general adult medical examination without abnormal findings Category: Medical Plan: Well-balanced diet regular physical activity discussed with the patient. She is up-to-date with the mammogram Pap by inside sales territory manager. Patient declined colonoscopy Cologuard will be ordered (2) Overweight: Comment: BMI 41,6, lost 20 lb since March until December on 5 mg of Zepbound Code(s): E66.3 - Overweight Category: Medical Plan: Continue decreasing caloric intake increasing physical activity and Zepbound. Patient has a support of powder and primer canning leader through her health insurance. Patient could not tolerate higher dose of Zepbound. (3) Hypertension: Code(s): I10 - Essential (primary) hypertension Category: Medical Plan: Start 40 mg of valsartan, low-sodium diet increase physical activity discussed with the patient follow-up in 2 months (4) MGUS (monoclonal gammopathy of unknown significance): Comment: f/u Dr. Swanson Code(s): D47.2 - Monoclonal gammopathy Category: Medical Plan: Follow-up with Hematology Orders: Orders Comprehensive [place]. Panel Fast Today E66.3 - Overweight, R73.9 - Hyperglycemia, unspecified, Z00.00 - Encounter for general adult medical examination without abnormal findings UA w Microscopic Today E66.3 - Overweight, R73.9 - Hyperglycemia, unspecified, Z00.00 - Encounter for general adult medical examination without abnormal findings Complete Blood Count Auto Diff Today E66.3 - Overweight, R73.9 - Hyperglycemia, unspecified, Z00.00 - Encounter for general adult medical examination without abnormal findings Lipid Panel Today E66.3 - Overweight, R73.9 - Hyperglycemia, unspecified, Z00.00 - Encounter for general adult medical examination without abnormal findings TSH reflex Free T4 Today E66.3 - Overweight, R73.9 - Hyperglycemia, unspecified, Z00.00 - Encounter for general adult medical examination without abnormal findings Vitamin D 25-OH Total Today E66.3 - Overweight, R73.9 - Hyperglycemia, unspecified, Z00.00 - Encounter for general adult medical examination without abnormal findings Hemoglobin A1c Today E66.3 - Overweight, R73.9 - Hyperglycemia, unspecified Referrals Cologuard Test Z12.11 - Encounter for screening for malignant neoplasm of colon, Z12.12 - Encounter for screening for malignant neoplasm of rectum Medications: New valsartan 40 mg PO DAILY 90 tabs 0RF
[2025-05-13 09:08] VITALS: BP 130/78; PULSE 75; RESP 17; TEMP 36.9; O2SAT 98; BMI 37.9
== END 2025-05-13 10:54 | disposition home or self-care (01) ==
LOC: HO.HMCC 08:55
PROVIDERS: PCP Internal Medicine; Visit Provider Internal Medicine
DX: Z00.00 Encounter for general adult medical examination without abnormal findings (principal); E66.3 Overweight; I10 Essential (primary) hypertension; D47.2 Monoclonal gammopathy